=== PATIENT | female | born 1985 | race American Indian/Alaskan Native ===

== ENCOUNTER 2022-04-28 00:14 | Inpatient (IN) | payer MEDICAID ==
[2022-04-28] MEDS ORDERED: LACTATED RINGERS 500 ML IV ONE (00:59)
[2022-04-28 03:36] LABS: Basophils % (Auto) 0.4 % (0.0-1.8); Eosinophils # (Auto) 0.1 K/mm3 (0.0-0.4); Eosinophils % (Auto) 0.6 % (0.0-4.3); Hematocrit 31.5 % (30.3-42.9); Hemoglobin 10.2 gm/dl (10.1-14.3); Lymphocytes # (Auto) 2.5 K/mm3 (1.2-5.4); Lymphocytes % (Auto) 29.7 % (13.4-35.0); Mean Corpuscular HGB Conc 32 % (30-34); Mean Corpuscular Volume 76 fl (79-97); Monocytes # (Auto) 0.7 K/mm3 (0.0-0.8); Platelet Count 289 K/mm3 (140-440); Red Blood Count 4.13 M/mm3 (3.65-5.03); Red Cell Distribution Width 17.8 % (13.2-15.2)
--- NOTE | 2022-04-28 05:55 | Ultrasound Report ---
US OB follow up INDICATION / CLINICAL INFORMATION: labor COMPARISON: None available. TECHNIQUE: Using a transcutaneous probe, multiple grayscale, color Doppler, and spectral Doppler imag es of the uterus and fetus were captured and stored. FINDINGS: Single cephalic fetus heart rate 137 bpm. Amniotic fluid index within normal limits measuring 12.9 cm. Biparietal Diameter = 8.8 cm = 35, 4 weeks, days Head Circumference = 32.3 cm = 36, 3 weeks, days Abdominal Circumference = 30.8 cm = 34, 5 weeks, days Femur Length = 6.7 cm = 34, 4 weeks, days Average Ultrasound Age (AUA) = 35, 2 weeks, days. EDC 05/31/2022. Findings less than gestational age based on LMP of 09/03/2021 is 33 weeks 6 days. Estimated weight = 2555 g. IMPRESSION: 1. Single living fetus as detailed. Signer Name: Murray Echeverria II, MD Signed: 04/28/2022 5:51 AM Workstation Name: [id number]
[2022-04-28] MEDS ORDERED: miSOPROStol 200 MCG TAB PR PRN (06:26)
[2022-04-28] MEDS ORDERED: BUTORPHANOL 2 MG/1 ML INJ IV PRN ×2 (06:26→06:49)
[2022-04-28] MEDS ORDERED: ePHEDrine SULFATE 50 MG/1 ML INJ IV PRN (06:26)
[2022-04-28] MEDS ORDERED: ACETAMINOPHEN 325 MG TAB PO PRN (06:26)
[2022-04-28] MEDS ORDERED: CARBOPROST TROMETHAMINE 250 MCG/1 ML INJ IM PRN (06:26)
[2022-04-28] MEDS ORDERED: TERBUTALINE 1 MG/1 ML INJ SUB-Q PRN (06:26)
[2022-04-28] MEDS ORDERED: LOPERAMIDE 2 MG CAP PO PRN (06:26)
[2022-04-28] MEDS ORDERED: OXYTOCIN 10 UNIT/1 ML INJ IM PRN (06:26)
[2022-04-28] MEDS ORDERED: MINERAL OIL 30 ML ORAL LIQD PO PRN (06:26)
[2022-04-28] MEDS ORDERED: METHYLERGONOVINE MALEATE 0.2 MG/ML VIAL IM PRN (06:26)
[2022-04-28] MEDS ORDERED: AZITHROMYCIN 250 MG TAB PO ONE (06:49)
--- NOTE | 2022-04-28 06:53 | History and Physical Report ---
History of Present Illness Date of examination: 04/28/22 Date of admission: 04/28/2022 Chief complaint: Leaking of fluid History of present illness: 36 y/o at 33-6/7 weeks presents to OBT reporting LOF that was a gush. No VB. No CTX. Good FM. In OBT, ROM Plus was (+). However, LICHA was 12.9 cm on sonogram. She is admitted to L&D for management of PPROM. Past History Past Medical History: no pertinent history Past Surgical History: no surgical history Family/Genetic History: none Social history: no significant social history - Obstetrical History Expected Date of Delivery: 05/10/22 Actual Gestation: 38 Week(s) 2 Day(s) : 3 Para: 1 Hx # Term Pregnancies: 1 Spontaneous Abortions: 1 Number of Living Children: 1 Medications and Allergies Allergies Allergy/AdvReac Type Severity Reaction Status Date / Time No Known Allergies Allergy Unverified 09/15/18 23:39 Active Meds: Active Medications Acetaminophen (Acetaminophen 325 Mg Tab) 650 mg PO Q4H PRN PRN Reason: Pain, Mild (1-3) Betamethasone Acet/Betameth SodPhos (Betamet Acet/Betamet Na Ph 6 Mg/Ml Inj 5 Ml Mdv) 12 mg IM Q24HR ROSARIO Stop: 04/29/22 10:01 Butorphanol Tartrate (Butorphanol 2 Mg/1 Ml Inj) 2 mg IV Q2H PRN PRN Reason: Pain, Moderate(4-6) LABOR PAIN Carboprost Tromethamine (Carboprost Tromethamine 250 Mcg/1 Ml Inj) 250 mcg IM ONCE PRN PRN Reason: Uterine Bleeding Ephedrine Sulfate (Ephedrine Sulfate 50 Mg/1 Ml Inj) 10 mg IV Q2M PRN PRN Reason: Hypotension Lactated Ringer's (Lactated Ringers) 1,000 mls @ 125 mls/hr IV DIRECT ROSARIO Ampicillin Sodium (Ampicillin/Ns 2 Gm/100 Ml) 2 gm in 100 mls @ 200 mls/hr IV Q6HR ROSARIO Stop: 04/30/22 06:59 Methylergonovine Maleate (Methylergonovine Maleate 0.2 Mg/Ml Vial) 0.2 mg IM ONCE PRN PRN Reason: Uterine Bleeding Terbutaline Sulfate (Terbutaline 1 Mg/1 Ml Inj) 0.25 mg SUB-Q ONCE PRN PRN Reason: Hyperstimulation/Hypertonicity Review of Systems All systems: negative - Vital Signs Vital signs: Vital Signs Pulse BP Pulse Ox 67 130/86 99 04/28/22 01:06 04/28/22 01:06 04/28/22 01:06 Temp Pulse Resp BP Pulse Ox 69 130/86 98 04/28/22 06:46 04/28/22 01:06 04/28/22 06:46 - Physical Exam Breasts: Positive: normal Cardiovascular: Regular rate Lungs: Positive: Normal air movement Abdomen: Positive: normal appearance Genitourinary (Female): Positive: normal external genitalia, normal perenium Vulva: both: normal Vagina: Positive: normal moisture Uterus: Positive: enlarged Adnexa: both: normal Anus/Rectum: Positive: normal perianal skin Extremities: Positive: normal Deep Tendon Reflex Grade: Normal +2 - Obstetrical FHR: category 1 Uterine Contraction Monitor Mode: External Cervical Dilatation: 0 Cervical Effacement Percentage: 50 station: -3 Uterine Contraction Pattern: Irregular Results Result Diagrams: 04/28/22 03:06 Abnormal lab results 04/28/22 04/28/22 Range/Units 01:05 03:06 MCV 76 L (79-97) fl MCH 25 L (28-32) pg RDW 17.8 H (13.2-15.2) % [place] % (Auto) 8.0 H (0.0-7.3) % Membranes Rupture Positive A (Negative) All other labs normal. Ultrasound: report reviewed (OB US Limite= SLIUP. Vertex. Fundal placenta. EFW= 2555 (74th %-ile). LICHA= 12.9 cm.), image reviewed Assessment and Plan - Patient Problems (1) 33 weeks gestation of Current Visit: Yes Status: Acute Plan to address problem: care is UTD at [facility] [employer]. BMTZ x2 ordered. GBS culture ordered. Ampicillin rx'ed already. AM shift to obtain records from office. (2) premature rupture of membranes (PPROM) with onset of labor within 24 hours of rupture in third trimester, antepartum Current Visit: Yes Status: Acute Plan to address problem: ROM Plus is (+). However, LICHA is 12.9 cm at this time. The clinical suspicion for PPROM is high. Etiology is unknown. No current signs or symptoms of intra-amniotic infection and inflammation. WBC is WNL. UCx and GC/Chl ordered. Consider MFM consultation to confirm (or refute) this suspicion. Admit to L&D. Rx ampicillin 2 g IVPB x 2 days and azithromycin 1 g PO x1 to prolong latency. As 34 gestation is tomorrow, I recommend IOL w/ PO Cytotec tomorrow night. (3) AMA (advanced maternal age) multigravida 35+ Current Visit: Yes Status: Acute Plan to address problem: Need to review records for NIPT result.
[2022-04-28] MEDS ORDERED: AMPICILLIN 2 GM in SODIUM CHLORIDE 0.9% 50 ML IV SCH (07:00)
[2022-04-28] MEDS ORDERED: AZITHROMYCIN 1 GM ORAL PWDR PACKET PO ONE (07:30)
--- NOTE | 2022-04-28 10:01 | Progress Note ---
Assessment and Plan A: IUP @ 33 6/7 Weeks Category I Tracing Premature Rupture of Membranes AMA GBS Unknown P: Continue IV ABX as ordered Complete BMTZ Series Consult [facility] Subjective - Subjective Date of service: 04/28/22 Patient reports: loss of fluid, movement normal Objective - Vital Signs Vital Signs: Vital Signs - 12hr 04/28/22 04/28/22 04/28/22 01:06 01:11 01:16 Temperature Pulse Rate 63 82 89 Respiratory Rate Blood Pressure 130/86 Blood Pressure [Right] O2 Sat by Pulse 99 99 99 Oximetry 04/28/22 04/28/22 04/28/22 01:21 01:26 01:31 Temperature Pulse Rate 64 83 67 Respiratory Rate Blood Pressure Blood Pressure [Right] O2 Sat by Pulse 99 98 99 Oximetry 04/28/22 04/28/22 04/28/22 01:36 01:41 01:46 Temperature Pulse Rate 65 69 62 Respiratory Rate Blood Pressure Blood Pressure [Right] O2 Sat by Pulse 98 98 98 Oximetry 04/28/22 04/28/22 04/28/22 01:51 01:56 02:01 Temperature Pulse Rate 70 79 72 Respiratory Rate Blood Pressure Blood Pressure [Right] O2 Sat by Pulse 97 99 99 Oximetry 04/28/22 04/28/22 04/28/22 02:06 02:11 02:16 Temperature Pulse Rate 81 78 73 Respiratory Rate Blood Pressure Blood Pressure [Right] O2 Sat by Pulse 98 96 99 Oximetry 04/28/22 04/28/22 04/28/22 02:21 02:26 02:31 Temperature Pulse Rate 72 82 67 Respiratory Rate Blood Pressure Blood Pressure [Right] O2 Sat by Pulse 97 98 99 Oximetry 04/28/22 04/28/22 04/28/22 02:36 02:41 02:46 Temperature Pulse Rate 64 79 97 H Respiratory Rate Blood Pressure Blood Pressure [Right] O2 Sat by Pulse 98 99 97 Oximetry 04/28/22 04/28/22 04/28/22 02:51 02:56 03:01 Temperature Pulse Rate 69 70 73 Respiratory Rate Blood Pressure Blood Pressure [Right] O2 Sat by Pulse 98 99 100 Oximetry 04/28/22 04/28/22 04/28/22 03:06 03:11 03:16 Temperature Pulse Rate 84 85 83 Respiratory Rate Blood Pressure Blood Pressure [Right] O2 Sat by Pulse 100 99 100 Oximetry 04/28/22 04/28/22 04/28/22 03:21 03:26 03:31 Temperature Pulse Rate 68 73 73 Respiratory Rate Blood Pressure Blood Pressure [Right] O2 Sat by Pulse 100 100 100 Oximetry 04/28/22 04/28/22 04/28/22 03:36 03:41 03:46 Temperature Pulse Rate 68 81 71 Respiratory Rate Blood Pressure Blood Pressure [Right] O2 Sat by Pulse 100 100 100 Oximetry 04/28/22 04/28/22 04/28/22 03:51 03:56 04:01 Temperature Pulse Rate 69 83 67 Respiratory Rate Blood Pressure Blood Pressure [Right] O2 Sat by Pulse 100 100 100 Oximetry 04/28/22 04/28/22 04/28/22 04:06 04:11 04:16 Temperature Pulse Rate 69 68 61 Respiratory Rate Blood Pressure Blood Pressure [Right] O2 Sat by Pulse 100 100 100 Oximetry 04/28/22 04/28/22 04/28/22 04:21 04:26 04:31 Temperature Pulse Rate 67 76 69 Respiratory Rate Blood Pressure Blood Pressure [Right] O2 Sat by Pulse 100 100 99 Oximetry 04/28/22 04/28/22 04/28/22 04:36 04:41 04:46 Temperature Pulse Rate 71 73 101 H Respiratory Rate Blood Pressure Blood Pressure [Right] O2 Sat by Pulse 99 99 99 Oximetry 04/28/22 04/28/22 04/28/22 04:51 04:56 05:01 Temperature Pulse Rate 104 H 81 93 H Respiratory Rate Blood Pressure Blood Pressure [Right] O2 Sat by Pulse 99 100 99 Oximetry 04/28/22 04/28/22 04/28/22 05:06 05:11 05:16 Temperature Pulse Rate 88 65 87 Respiratory Rate Blood Pressure Blood Pressure [Right] O2 Sat by Pulse 99 100 100 Oximetry 04/28/22 04/28/22 04/28/22 05:21 05:26 05:31 Temperature Pulse Rate 94 H 82 90 Respiratory Rate Blood Pressure Blood Pressure [Right] O2 Sat by Pulse 99 99 99 Oximetry 04/28/22 04/28/22 04/28/22 05:36 05:41 05:46 Temperature Pulse Rate 90 77 69 Respiratory Rate Blood Pressure Blood Pressure [Right] O2 Sat by Pulse 98 98 97 Oximetry 07/04/28/22 04/28/22 05:51 05:56 06:01 Temperature Pulse Rate 75 75 73 Respiratory Rate Blood Pressure Blood Pressure [Right] O2 Sat by Pulse 98 97 97 Oximetry 04/28/22 04/28/22 04/28/22 06:02 06:06 06:11 Temperature Pulse Rate 68 74 89 Respiratory Rate Blood Pressure Blood Pressure [Right] O2 Sat by Pulse 94 96 98 Oximetry 04/28/22 04/28/22 04/28/22 06:16 06:21 06:26 Temperature Pulse Rate 69 75 70 Respiratory Rate Blood Pressure Blood Pressure [Right] O2 Sat by Pulse 98 97 97 Oximetry 04/28/22 04/28/22 04/28/22 06:31 06:36 06:41 Temperature Pulse Rate 80 74 71 Respiratory Rate Blood Pressure Blood Pressure [Right] O2 Sat by Pulse 98 98 97 Oximetry 04/28/22 04/28/22 04/28/22 06:46 06:51 06:53 Temperature Pulse Rate 69 75 91 H Respiratory Rate Blood Pressure 117/81 Blood Pressure [Right] O2 Sat by Pulse 98 98 Oximetry 04/28/22 04/28/22 04/28/22 06:56 07:01 07:15 Temperature Pulse Rate 92 H 79 63 Respiratory Rate Blood Pressure Blood Pressure [Right] O2 Sat by Pulse 99 100 0 L Oximetry 04/28/22 04/28/22 04/28/22 07:16 07:20 07:25 Temperature Pulse Rate 75 77 75 Respiratory Rate Blood Pressure 113/79 Blood Pressure [Right] O2 Sat by Pulse 100 99 Oximetry 04/28/22 04/28/22 04/28/22 07:30 07:35 07:40 Temperature Pulse Rate 77 69 70 Respiratory Rate Blood Pressure Blood Pressure [Right] O2 Sat by Pulse 100 100 100 Oximetry 04/28/22 04/28/22 04/28/22 07:45 07:50 07:55 Temperature Pulse Rate 87 83 69 Respiratory Rate Blood Pressure Blood Pressure [Right] O2 Sat by Pulse 100 99 100 Oximetry 04/28/22 04/28/22 04/28/22 08:00 08:05 08:10 Temperature Pulse Rate 70 73 89 Respiratory Rate Blood Pressure Blood Pressure [Right] O2 Sat by Pulse 99 99 98 Oximetry 04/28/22 04/28/22 04/28/22 08:15 08:20 08:25 Temperature Pulse Rate 70 72 89 Respiratory Rate Blood Pressure Blood Pressure [Right] O2 Sat by Pulse 99 98 98 Oximetry 04/28/22 04/28/22 04/28/22 08:30 08:35 08:40 Temperature Pulse Rate 71 75 67 Respiratory Rate Blood Pressure Blood Pressure [Right] O2 Sat by Pulse 99 100 99 Oximetry 04/28/22 04/28/22 04/28/22 08:45 08:50 08:51 Temperature 97.5 F L Pulse Rate 69 68 70 Respiratory 16 Rate Blood Pressure Blood Pressure 113/79 [Right] O2 Sat by Pulse 99 99 100 Oximetry 04/28/22 04/28/22 04/28/22 08:55 09:00 09:05 Temperature Pulse Rate 71 69 84 Respiratory Rate Blood Pressure Blood Pressure [Right] O2 Sat by Pulse 100 99 100 Oximetry 04/28/22 04/28/22 04/28/22 09:10 09:15 09:20 Temperature Pulse Rate 77 82 69 Respiratory Rate Blood Pressure Blood Pressure [Right] O2 Sat by Pulse 100 99 99 Oximetry 04/28/22 04/28/22 04/28/22 09:25 09:30 09:35 Temperature Pulse Rate 68 82 82 Respiratory Rate Blood Pressure Blood Pressure [Right] O2 Sat by Pulse 99 98 99 Oximetry 04/28/22 04/28/22 04/28/22 09:40 09:45 09:50 Temperature Pulse Rate 71 69 73 Respiratory Rate Blood Pressure Blood Pressure [Right] O2 Sat by Pulse 100 100 99 Oximetry 04/28/22 04/28/22 09:52 09:55 Temperature Pulse Rate 112 H 74 Respiratory Rate Blood Pressure Blood Pressure [Right] O2 Sat by Pulse 92 99 Oximetry - Exam Breasts: normal Cardiovascular: Regular rate Lungs: Clear to auscultation, Normal air movement Abdomen: Present: normal appearance, soft Uterus: Present: normal, firm, fundal height above umbilicus FHR: category 1 Uterine Contraction Monitor Mode: External Cervical Dilatation: 1 (+Pooling (clear fluid) upon Sterile Speculum Exam) Cervical Effacement Percentage: 20 station: -4 Uterine Contraction Pattern: Absent Uterine Tone Measurement Phase: Resting Extremities: normal - Labs Labs: Abnormal Labs 04/28/22 04/28/22 04/28/22 01:05 03:06 09:02 MCV 76 L MCH 25 L RDW 17.8 H Ross % (Auto) 8.0 H POC Glucose 109 H Membranes Rupture Positive A Laboratory Results - last 24 hr 04/28/22 04/28/22 04/28/22 01:05 03:06 05:27 WBC 8.3 RBC 4.13 Hgb 10.2 Hct 31.5 MCV 76 L MCH 25 L MCHC 32 RDW 17.8 H Plt Count 289 Lymph % (Auto) 29.7 Ross % (Auto) 8.0 H Eos % (Auto) 0.6 Baso % (Auto) 0.4 Lymph # (Auto) 2.5 Ross # (Auto) 0.7 Eos # (Auto) 0.1 Baso # (Auto) 0.0 Seg Neutrophils % 61.3 Seg Neutrophils # 5.1 POC Glucose Membranes Rupture Positive A Blood Type A POSITIVE Antibody Screen Negative 04/28/22 09:02 WBC RBC Hgb Hct MCV MCH MCHC RDW Plt Count Lymph % (Auto) Ross % (Auto) Eos % (Auto) Baso % (Auto) Lymph # (Auto) Ross # (Auto) Eos # (Auto) Baso # (Auto) Seg Neutrophils % Seg Neutrophils # POC Glucose 109 H Membranes Rupture Blood Type Antibody Screen
[2022-04-28] MEDS: BETAMET ACET/BETAMET NA PH 6 MG/ML INJ 5 ML MDV IM SCH (12:09)
[2022-04-28] MEDS: AMPICILLIN/NS 2 GM/100 ML 2 GM/100 ML BAG IV SCH ×2 (12:10→18:04)
[2022-04-28] MEDS: LACTATED RINGERS 1,000 ML IV SCH (12:11)
[2022-04-29] MEDS: AMPICILLIN/NS 2 GM/100 ML 2 GM/100 ML BAG IV SCH ×2 (00:22)
[2022-04-29] MEDS: LACTATED RINGERS 1,000 ML IV SCH (00:37)
[2022-04-29] MEDS: AMPICILLIN/NS 1 GM/50 ML 1 GM/50 ML BAG IV SCH ×4 (05:58→21:30)
[2022-04-29] MEDS ORDERED: INSULIN LISPRO 100 UNIT/ML SUB-Q ONE (05:59)
[2022-04-29] MEDS: miSOPROStol 25 MCG TAB PO SCH ×2 (05:59→12:25)
[2022-04-29] MEDS: INSULIN REGULAR, HUMAN 100 UNITS/1 ML SUB-Q SCH ×2 (08:15→19:26)
[2022-04-29] MEDS: INSULIN NPH, HUMAN 100 UNIT/1 ML SUB-Q SCH (08:22)
[2022-04-29] MEDS: BETAMET ACET/BETAMET NA PH 6 MG/ML INJ 5 ML MDV IM SCH (12:28)
[2022-04-29] MEDS ORDERED: OXYTOCIN DRIP 30 UNITS/500 ML BAG IV SCH (14:00)
--- NOTE | 2022-04-29 19:13 | Event Note ---
Date: 04/29/22 pt evaluated earlier after she had shower this am. Nurse told to start IV pitocin to augment labor. GBS negative and FHR reassuring. Hopeful for vag delivery. Accucheck to be done every 2hrs until and coverage with SSI as needed.
[2022-04-29] MEDS ORDERED: SODIUM CHLORIDE 0.9% 1000 ML 1,000 ML ONE ×2 (19:17→20:16)
--- NOTE | 2022-04-29 19:34 | Progress Note ---
Assessment and Plan A: HD #3 PPROM at 34wks GDMa2 insulin IOL currently with pitocin @6mu Cat 2 tracing, lates noted P: Initiate resus interventions by RN (position changes, O2 and fluid bolus) RN made aware of Cat 2 tracing BS q4hr now, then Q1hr in active labor continuous YUNG and EFM monitoring Subjective - Subjective Date of service: 04/29/22 (0655) Principal diagnosis: PPROM @34wks Patient reports: loss of fluid, movement normal, contractions (states feels some of her contractions) Objective - Vital Signs Vital Signs: Vital Signs - 12hr 04/29/22 04/29/22 04/29/22 07:31 07:36 07:41 Pulse Rate 79 73 79 Blood Pressure O2 Sat by Pulse 99 99 99 Oximetry 04/29/22 04/29/22 04/29/22 07:46 07:51 07:56 Pulse Rate 88 81 85 Blood Pressure O2 Sat by Pulse 98 99 99 Oximetry 04/29/22 04/29/22 04/29/22 08:01 08:04 08:06 Pulse Rate 82 86 88 Blood Pressure 126/73 O2 Sat by Pulse 99 100 Oximetry 04/29/22 04/29/22 04/29/22 08:11 08:16 08:21 Pulse Rate 71 73 100 H Blood Pressure O2 Sat by Pulse 97 98 98 Oximetry 04/29/22 04/29/22 04/29/22 08:26 08:31 08:36 Pulse Rate 84 90 73 Blood Pressure O2 Sat by Pulse 98 98 98 Oximetry 04/29/22 04/29/22 04/29/22 08:41 08:46 08:51 Pulse Rate 84 77 74 Blood Pressure O2 Sat by Pulse 97 96 97 Oximetry 04/29/22 04/29/22 04/29/22 08:56 09:01 09:06 Pulse Rate 74 78 79 Blood Pressure O2 Sat by Pulse 97 98 97 Oximetry 04/29/22 04/29/22 04/29/22 09:11 09:16 09:21 Pulse Rate 89 91 H 87 Blood Pressure O2 Sat by Pulse 97 98 97 Oximetry 04/29/22 04/29/22 04/29/22 09:26 09:31 09:36 Pulse Rate 80 86 86 Blood Pressure O2 Sat by Pulse 97 98 96 Oximetry 04/29/22 04/29/2222 09:41 09:46 09:51 Pulse Rate 90 84 82 Blood Pressure O2 Sat by Pulse 96 97 98 Oximetry 04/29/22 04/29/22 04/29/22 09:56 10:01 10:06 Pulse Rate 95 H 83 99 H Blood Pressure O2 Sat by Pulse 97 98 95 Oximetry 04/29/22 04/29/22 04/29/22 10:11 10:16 10:21 Pulse Rate 82 99 H 92 H Blood Pressure O2 Sat by Pulse 98 97 96 Oximetry 04/29/22 04/29/22 04/29/22 10:26 10:31 10:36 Pulse Rate 93 H 79 84 Blood Pressure O2 Sat by Pulse 97 98 97 Oximetry 04/29/22 04/29/22 04/29/22 10:41 10:46 10:51 Pulse Rate 75 91 H 72 Blood Pressure O2 Sat by Pulse 98 97 100 Oximetry 04/29/22 04/29/22 04/29/22 10:56 11:01 11:06 Pulse Rate 72 73 77 Blood Pressure O2 Sat by Pulse 100 100 100 Oximetry 04/29/22 04/29/22 04/29/22 11:11 11:16 11:21 Pulse Rate 75 73 91 H Blood Pressure O2 Sat by Pulse 100 100 99 Oximetry 04/29/22 04/29/22 04/29/22 11:26 11:31 11:36 Pulse Rate 71 66 68 Blood Pressure O2 Sat by Pulse 99 100 99 Oximetry 04/29/22 04/29/22 04/29/22 11:41 11:46 11:51 Pulse Rate 72 76 78 Blood Pressure O2 Sat by Pulse 98 99 99 Oximetry 04/29/22 04/29/22 04/29/22 11:56 12:01 12:06 Pulse Rate 79 94 H 73 Blood Pressure O2 Sat by Pulse 100 100 100 Oximetry 04/29/22 04/29/22 04/29/22 12:09 17:51 17:53 Pulse Rate 96 H 72 65 Blood Pressure 108/76 O2 Sat by Pulse 75 L 99 Oximetry 04/29/22 04/29/22 04/29/22 17:56 18:01 18:03 Pulse Rate 72 68 68 Blood Pressure 117/65 O2 Sat by Pulse 99 99 Oximetry 04/29/22 04/29/22 04/29/22 18:06 18:11 18:16 Pulse Rate 69 73 68 Blood Pressure O2 Sat by Pulse 98 99 98 Oximetry 04/29/22 04/29/22 04/29/22 18:21 18:26 18:31 Pulse Rate 69 74 67 Blood Pressure O2 Sat by Pulse 98 98 98 Oximetry 04/29/22 04/29/22 04/29/22 18:36 18:41 18:46 Pulse Rate 70 66 85 Blood Pressure O2 Sat by Pulse 98 97 99 Oximetry 04/29/22 04/29/22 04/29/22 18:51 18:56 19:01 Pulse Rate 70 82 70 Blood Pressure O2 Sat by Pulse 97 98 97 Oximetry 04/29/22 04/29/22 04/29/22 19:06 19:11 19:16 Pulse Rate 69 61 64 Blood Pressure O2 Sat by Pulse 97 100 100 Oximetry 04/29/22 04/29/22 19:21 19:26 Pulse Rate 54 L 73 Blood Pressure O2 Sat by Pulse 100 100 Oximetry - Exam Breasts: deferred Vulva: both: normal FHR: category 2 FHR comments: 135-140 Uterine Contraction Monitor Mode: External Cervical Dilatation: 3 Cervical Effacement Percentage: 60 station: -4 Uterine Contraction Frequency (min): 2-3 Uterine Contraction Pattern: Regular - Labs Labs: Abnormal Labs 04/28/22 04/28/22 04/28/22 01:05 03:00 03:06 MCV 76 L MCH 25 L RDW 17.8 H [place] % (Auto) 8.0 H POC Glucose Hemoglobin A1c 7.5 H Membranes Rupture Positive A 04/28/22 04/29/22 04/29/22 09:02 04:08 07:23 MCV MCH RDW [place] % (Auto) POC Glucose 109 H 137 H 124 H Hemoglobin A1c Membranes Rupture Laboratory Results - last 24 hr 04/28/22 04/29/22 04/29/22 03:00 04:08 07:23 POC Glucose 137 H 124 H Hemoglobin A1c 7.5 H
[2022-04-29] MEDS: DOCUSATE SODIUM 100 MG CAP PO SCH (22:00)
[2022-04-30] MEDS ORDERED: SODIUM CHLORIDE 0.9% 1000 ML 1,000 ML ONE ×3 (00:57→06:09)
[2022-04-30] MEDS: AMPICILLIN/NS 1 GM/50 ML 1 GM/50 ML BAG IV SCH ×5 (01:28→15:15)
--- NOTE | 2022-04-30 04:20 | Event Note ---
Date: 04/30/22 (0417) Patient resting at this time, denies feeling contractions since ivp meds given. VE: /-4, soft, almost mid position, clear fluid noted, pitocin 3mu, BS 119. Continue augmentation of labor, tracing cat 2 with minimal variability since IV meds given, contractions irregular.
--- NOTE | 2022-04-30 08:14 | Event Note ---
Date: 04/30/22 Pt declines section for delivery because she came to the hospital for a vaginal . Pt was using oxygen via face mask when I saw her. Denies vag bleed. Pt also declined to void at the time I saw her. Pt desires the same person to do her vag exam. Denies fever or chills. Pt states that she used insulin only in the hospital to control her elevated blood sugar. Pt admits to movment. FHR category I and no ctx seen with pitocin currently off. Pelvic exam done and I could not feel the presenting part nor the cervix. Bed side u/s by me with fetus vertex with a full bladder. Pt told and then she stated OK I was waiting to void after breakfast. Pt encouraged not to hold her urine and pitocin can only be given with reassuring FHR. Pt desires intermittent pitocin and notified of same. Pt also states she is aware that the pitocin had to be stopped twice overnight by the other provider. Lengthy discussion on snf exposure with PPROM for infection and possible abruption. Will continue antibiotics with prolong rupture for GBS unknown. Vitals wnl at this time. NICU personnel present in the room as I counseled pt. Will continue accucheck intermittently with pt not in active labor and pt told last pelvic of 4am will suffice at 3cm/70/high by the last provider. Shared decision making to continue with augmentation of labor with pitocin and no section at this time.
[2022-04-30] MEDS: LACTATED RINGERS 1,000 ML IV SCH (08:20)
[2022-04-30] MEDS ORDERED: FAMOTIDINE 20 MG/2 ML INJ IV ONE (19:20)
[2022-04-30] MEDS ORDERED: METOCLOPRAMIDE 10 MG/2 ML INJ IV ONE (19:20)
[2022-04-30] MEDS ORDERED: BICITRA ORAL LIQD 30ML PO ONE (19:20)
[2022-04-30] MEDS ORDERED: LACTATED RINGERS 1,000 ML IV SCH (19:30)
[2022-04-30] MEDS ORDERED: ceFAZolin/Water 2 GM/20 ML 2 GM/20 ML SYRINGE IV NR (20:00)
[2022-04-30] MEDS ORDERED: OXYTOCIN DRIP 30 UNITS/500 ML BAG IV SCH (20:00)
--- NOTE | 2022-04-30 20:08 | Event Note ---
Date: 04/30/22 Nurse notified me earlier at 12:30pm with category II FHR inspite of oxygen being administered and pt now wants a section. Pt however ate a meal at noon and case delayed for 6hrs. Pt had good response to scalp stimulation when ordered earlier. Consents obtained and will proceed for primary section due to intolerance of labor with PPROM x4days. all questions encouraged and answered.
[2022-04-30] MEDS ORDERED: SODIUM CHLORIDE 0.9% IRR 1,500 ML BOTTLE IR ONE (20:32)
[2022-04-30] MEDS ORDERED: ceFAZolin/STERILE WATER 2 GM/20 ML SYRINGE IV ONE (20:32)
[2022-04-30] MEDS ORDERED: WATER FOR IRRIG STERILE 1,500 ML BOTTLE IR ONE (21:19)
[2022-04-30] MEDS ORDERED: PHENYLEPHRINE/NS 1,000 MCG/10 ML SYRINGE (OR USE) IV ONE (21:51)
[2022-04-30] MEDS ORDERED: BUPIVACAINE/PF (0.5%) 5 MG/1 ML 30 ML VIAL INFILTRATI ONE (21:51)
[2022-04-30] MEDS ORDERED: ePHEDrine SULFATE 50 MG/1 ML INJ ONE (21:51)
[2022-04-30] MEDS ORDERED: ONDANSETRON 4 MG/2 ML INJ ONE (21:51)
[2022-04-30] MEDS ORDERED: KETOROLAC 30 MG/1 ML INJ ONE (21:52)
[2022-04-30] MEDS ORDERED: miSOPROStol 200 MCG TAB ONE (22:18)
[2022-04-30] MEDS ORDERED: MORPHINE 4 MG/1 ML INJ IV PRN (22:43)
[2022-04-30] MEDS ORDERED: PROMETHAZINE 25 MG RECT SUPP PR PRN (22:43)
[2022-04-30] MEDS ORDERED: ONDANSETRON 4 MG/2 ML INJ IV PRN (22:43)
[2022-04-30] MEDS ORDERED: HYDROmorphone 1 MG/1 ML INJ IV PRN ×2 (22:43)
[2022-04-30] MEDS ORDERED: NALOXONE 0.4 MG/1 ML INJ IV PRN (22:43)
[2022-04-30] MEDS ORDERED: PROMETHAZINE 25 MG TAB PO PRN (22:43)
--- NOTE | 2022-04-30 22:55 | Procedure Note ---
OB Delivery Note - Delivery Date of Delivery: 04/30/22 Surgeon: YARI BEEBE Estimated blood loss: other (per QBL) - Section Preop diagnosis: nonreassuring FHR tracing (when pitocin used, therefore intolerance of labor), other (PPROM x4days, Gestational Diabetes at 34.3wks) Postop diagnosis: same (and Large anterior uterine fibroid 8x6cm) section procedure: primary low transverse Disposition: floor Complications: none Narrative: Date: 04/30/22 Surgeon: Yari Beebe MD Preop Dx: IUP at 34.3wks, PPROM x4days, intolerance of labor, late decels when pitocin started; Gestational Diabetes on Insulin therapy Postop Dx: same and large anterior uterine fibroid Procedure : Primary low transverse section Anesthesia: Spinal Intake: 1000cc crystalloids Output: 900cc clear urine EBL: [] After the risks, benefits and alternatives of procedure discussed, patient signed consents and was taken to the operating room. Pt was given spinal anesthesia. After same was adequate, patient was prepped and draped in the usual sterile fashion. Adame catheter in place and draining clear urine. Pt was given prophylactic antibiotic per protocol and time out was done Pfannenstiel skin incision was made and taken sharply to the fascia and the incision extended using electrocautery. Superior edge of the fascia was grasped with dano clamps and the rectus muscle using blunt dissection and also using electrocautery. Lower portion of the fascia also with electrocautery. Rectus muscle in the midline and Peritoneal cavity entered bluntly and extended with good visualization of the bladder. The bladder flap was created sharply using metzenbaum scissors. Lower uterine segment located by lifting anterior fibroid then entered transversely and amniotic sac entered using allys clamps. Uterine incision extended using bandage scissors and care taken avoid huge vessels/sinus to right side of uterus. Infant delivered vertex, bulb suctioned, cord clamped and baby handed to waiting pediatricians. Placenta then delivered completely and uterine cavity cleared of all clots and debri. The uterus was not exteriorized due to large 8x6cm anterior fibroid and uterus closed in 2 layers using 0- monocryl suture in a running locked fashion and then an additional layer of imbrication suture. Surgicel powder placed. Excellent hemostasis noted. The gutters were cleared of clots and debri and anterior peritoneum closed using 3-0 vicryl suture in a running fashion and rectus muscle reapproximated using 0-vicryl suture in a continuous fashion. Rectus fascia closed with 0-monocryl suture that was available in OR in a continuous fashion and subcutaneous tissue copiously irrigated with normal saline and re-approximated using 3-0 vicryl suture. Excellent hemostasis remains. The skin was closed with 4-0 monocryl suture and steristrips placed with pressure dressing. Sponge, lap, instrument and needle counts x2 were normal. Patient tolerated the procedure well and pt was taken to recovery room stable. Findings: Viable female , APGARS 9/9 and weight 2170g. Distorted uterus with large anterior 8x6cm fibroid and extensive engorged vessels/sinus to right side of the uterus, normal tubes and ovaries bilaterally.
[2022-04-30] MEDS ORDERED: fentaNYL-BUPIV 2 MCG/ML-0.125% 200 MCG/100 ML BAG EPIDURAL SCH (23:00)
--- NOTE | 2022-04-30 23:00 | Anesthesia Day of Surgery ---
Anesthesia Day of Surgery - Day of Surgery Patient Examined: Yes Patient H&P Reviewed: Yes Patient is NPO: Yes Beta Blockers: No Cardiac Clearance: No Pulmonary Clearance: No Marcel's Test: N/A
--- NOTE | 2022-04-30 23:00 | Anesthesia Consultation ---
Anesthesia Consult and Med Hx Date of service: 04/30/22 - Airway Anesthetic Teeth Evaluation: Good ROM Head & Neck: Adequate Mental/Hyoid Distance: Adequate Mallampati Class: Class II Intubation Access Assessment: Probably Good - Pulmonary Exam CTA: Yes - Cardiac Exam Cardiac Exam: RRR - Pre-Operative Health Status ASA Pre-Surgery Classification: ASA2 Proposed Anesthetic Plan: Spinal Nerve Block: [place] Tap - Pulmonary Hx Smoking: No Hx Asthma: No Hx Respiratory Symptoms: No SOB: No COPD: No Home Oxygen Therapy: No Hx Pneumonia: No Hx Sleep Apnea: No - Cardiovascular System Hx Hypertension: No Hx Coronary Artery Disease: No Hx Heart Attack/AMI: No Hx Angina: No Hx Percutaneous Transluminal Coronary Angioplasty (PTCA): No Hx Cardia Arrhythmia: No Hx Pacemaker: No Hx Internal Defibrillator: No Hx Valvular Heart Disease: No Hx Heart Murmur: No Hx Peripheral Vascular Disease: No - Central Nervous System Hx Neuromuscular Disorder: No Hx Seizures: No CVA: No Hx Back Pain: No Hx Psychiatric Problems: No - Gastrointestinal Hx Ulcer: No Hx Gastroesophageal Reflux Disease: No - Endocrine Hx Renal Disease: No Hx End Stage Renal Disease: No Hx Cirrhosis: No Hx Liver Disease: No Hx Insulin Dependent Diabetes: No Hx Non-Insulin Dependent Diabetes: No Hx Thyroid Disease: No Hx Hypothyroidism: No Hx Hyperthyroidism: No - Hematic Hx Anemia: No Hx Sickle Cell Disease: No - Other Systems Hx Alcohol Use: No Hx Substance Use: No Hx Cancer: No Hx Obesity: Yes
--- NOTE | 2022-04-30 23:01 | Progress Note ---
Spinal Anesthesia Block - Spinal Anesthesia Block Start Time: 20:31 Stop Time: 21:37 Performed by:: AZAEL BENJAMIN Procedure: The patient was placed in a sitting position on the OR table and monitors applied. A timeout was performed immediately prior to the start of the procedure. The patient was Prepped and draped in a sterile fashion and the skin was localized with 3 mL 1% lidocaine at L[4]-L[5] interspace. An introducer was placed into the back between L4-L5 and a 25g spinal needle was advanced into the intrathecal space until clear, free flowing CSF was observed. 1.8cc of 0.75% hyperbaric bupivacaine + 0.5mcg Precedex was injected into the intrathecal space and the spinal needle was removed. The patient tolerated the procedure well and there were no immediate complications noted.
--- NOTE | 2022-04-30 23:01 | Progress Note ---
Regional Anesthesia Block - Regional Anesthesia Block Start Time: 21:30 Stop Time: 21:37 Performed By:: AZAEL BENJAMIN Procedure: During the pre-op interview the patient agreed to and signed a consent for a TAP block for post surgical pain management. After her C/S was completed a time out was performed prior to the start of the procedure. The Trans Abdominal Plane was identified bilaterally via ultrasound. The skin was prepped bilaterally with chlorhexidine and a 22g stimuplex needle was advanced to the area between the internal oblique muscle and the trans abdominal plane. Marcaine 0.25% 30mlwas injected under ultrasound guidance on the left and right side. Negative aspiration every 5mL, There was no change in the patients heart rate or rhythm and the patient tolerated the procedure well. No apparent complications were observed.
[2022-05-01] MEDS ORDERED: MAGNESIUM HYDROXIDE (MOM) ORAL LIQD UDC PO PRN (00:07)
[2022-05-01] MEDS ORDERED: WITCH HAZEL/ GLYCERIN PAD TP PRN (00:07)
[2022-05-01] MEDS ORDERED: IBUPROFEN 800 MG TAB PO PRN (00:07)
[2022-05-01] MEDS ORDERED: HYDROCORTISONE 25 MG RECTAL SUPP PR PRN (00:07)
[2022-05-01] MEDS ORDERED: OXYTOCIN DRIP 30 UNITS/500 ML BAG IV SCH (00:07)
[2022-05-01] MEDS ORDERED: SIMETHICONE 80 MG CHEW TAB PO PRN (00:07)
[2022-05-01] MEDS ORDERED: LANOLIN/ZINC/DIMETHICONE (LANSINOH) 7 GM TP PRN (00:07)
[2022-05-01] MEDS ORDERED: oxyCODONE /ACETAMINOPHEN 5-325MG TAB PO PRN (00:07)
[2022-05-01] MEDS ORDERED: NALOXONE 0.4 MG/1 ML INJ IV PRN (00:07)
[2022-05-01] MEDS ORDERED: SENNOSIDES 8.6 MG TAB PO PRN (00:07)
[2022-05-01] MEDS ORDERED: miSOPROStol 200 MCG TAB PR ONE (05:29)
--- NOTE | 2022-05-01 06:53 | Progress Note ---
Assessment and Plan POD#1 C/S doing well 1. Routine post op care with removal of green later today, advance diet as tolerated and pt to ambulate in hallway 2. Resume insulin regime with meals and if no flatus, then call MD for SSI; will consider consult to med hospitalist if blood sugar not well controlled All questions encouraged and answered Subjective Date of service: 05/01/22 Principal diagnosis: POD#1 C/S, IDDM ?gest vs pre-gest Interval history: pt has minimal discomfort and pain controlled with meds. Green cath still in place draining large amount of clear urine. Pt has breast pump to start to prepare for milk with baby in NICU Objective - Constitutional Vitals: Vital Signs - 12hr 04/30/22 04/30/22 04/30/22 18:51 18:56 19:01 Temperature Pulse Rate 70 64 61 Respiratory Rate Blood Pressure Blood Pressure [Right] O2 Sat by Pulse 98 97 98 Oximetry O2 Sat by Pulse Oximetry [ Bilateral] 04/30/22 04/30/22 04/30/22 19:06 19:11 19:16 Temperature Pulse Rate 78 88 73 Respiratory Rate Blood Pressure Blood Pressure [Right] O2 Sat by Pulse 97 99 98 Oximetry O2 Sat by Pulse Oximetry [ Bilateral] 04/30/22 04/30/22 04/30/22 19:17 19:21 19:26 Temperature Pulse Rate 94 H 85 67 Respiratory Rate Blood Pressure 125/69 Blood Pressure [Right] O2 Sat by Pulse 98 98 Oximetry O2 Sat by Pulse Oximetry [ Bilateral] 04/30/22 04/30/22 04/30/22 19:31 19:36 19:41 Temperature Pulse Rate 78 76 70 Respiratory Rate Blood Pressure Blood Pressure [Right] O2 Sat by Pulse 100 100 100 Oximetry O2 Sat by Pulse Oximetry [ Bilateral] 04/30/22 04/30/22 04/30/22 19:42 19:46 19:47 Temperature Pulse Rate 56 L 75 69 Respiratory Rate Blood Pressure 116/59 124/65 Blood Pressure [Right] O2 Sat by Pulse 99 Oximetry O2 Sat by Pulse Oximetry [ Bilateral] 04/30/22 04/30/22 04/30/22 20:00 22:29 22:34 Temperature 98.5 F 98.5 F Pulse Rate 71 69 Respiratory 14 Rate Blood Pressure 118/64 121/71 Blood Pressure 124/65 [Right] O2 Sat by Pulse 100 100 Oximetry O2 Sat by Pulse 100 Oximetry [ Bilateral] 04/30/22 04/30/22 04/30/22 22:39 22:54 23:09 Temperature Pulse Rate 54 L 77 56 L Respiratory 18 15 Rate Blood Pressure 115/66 127/52 123/63 Blood Pressure [Right] O2 Sat by Pulse 100 100 99 Oximetry O2 Sat by Pulse Oximetry [ Bilateral] 04/30/22 05/01/22 05/01/22 23:24 00:15 04:32 Temperature 98.5 F 98.4 F Pulse Rate 51 L 58 L 53 L Respiratory 23 18 20 Rate Blood Pressure 124/65 119/64 Blood Pressure 119/71 [Right] O2 Sat by Pulse 100 99 100 Oximetry O2 Sat by Pulse 99 Oximetry [ Bilateral] General appearance: Present: no acute distress - Neck Neck: supple, normal ROM - Respiratory Respiratory effort: normal - Breasts Breasts: deferred - Cardiovascular Rhythm: regular Extremities: No edema - Gastrointestinal General gastrointestinal: Present: soft, non-tender, other (Dressing C/D/I ) - Genitourinary Female genitourinary: other (Fundus firm 1cm below umbilicus and non-tender) - Neurologic Neurologic: moves all extremities - Psychiatric Psychiatric: cooperative - Labs CBC & Chem 7: 04/28/22 03:06 Labs: Abnormal lab results 04/30/22 04/30/22 04/30/22 Range/Units 10:03 15:26 19:57 POC Glucose 123 H 133 H 129 H (70-105) mg/dL Medications & Allergies - Medications Allergies/Adverse Reactions: Allergies No Known Allergies Allergy (Verified 05/01/22 05:33) Home Medications: Home Medications Medication Instructions Recorded Confirmed Last Taken Type Ibuprofen [Motrin] 800 mg PO Q8HR PRN 21 Days #40 04/30/22 Unknown Rx tablet oxyCODONE /ACETAMINOPHEN [Percocet 1 tab PO Q4HR PRN 21 Days #30 tab 04/30/22 Unknown Rx 5/325] Active Medications: Generic Name Dose Route Start Last Admin Trade Name Freq PRN Reason Stop Dose Admin Carboprost Tromethamine 250 mcg 04/28/22 06:26 Carboprost Tromethamine 250 Mcg/1 Ml Inj IM ONCE PRN Uterine Bleeding Docusate Sodium 100 mg 04/28/22 10:00 04/29/22 22:00 Docusate Sodium 100 Mg Cap PO Not Given BID [facility] Ferrous Sulfate 325 mg 05/01/22 10:00 Ferrous Sulfate 325 Mg Tab PO QDAY [facility] Hydrocortisone Acetate 25 mg 05/01/22 00:07 Hydrocortisone 25 Mg Rectal Supp DC BID PRN Hemorrhoids Lactated Ringer's 1,000 mls @ 125 mls/hr 04/28/22 06:30 04/30/22 08:20 Lactated Ringers IV 125 mls/hr DIRECT [facility] Administration Oxytocin/Sodium Chloride 30 units in 500 mls @ 40 mls/hr 05/01/22 00:07 Pitocin/Ns 30 Unit/500ml IV TITR [facility] Protocol Ibuprofen 600 mg 05/01/22 00:07 Ibuprofen 600 Mg Tab PO Q6H PRN Pain, Mild (1-3) Ibuprofen 800 mg 05/01/22 00:07 Ibuprofen 800 Mg Tab PO Q6H PRN Pain, Moderate (4-6) Insulin Human NPH 10 unit 04/29/22 22:00 Insulin Nph, Human 100 Unit/1 Ml SUB-Q QHS [facility] Insulin Human NPH 20 unit 04/29/22 07:30 04/29/22 08:22 Insulin Nph, Human 100 Unit/1 Ml SUB-Q 20 unit 0730 [facility] Administration Insulin Human Regular 10 units 04/29/22 17:30 04/29/22 19:26 Insulin Regular, Human 100 Units/1 Ml SUB-Q 10 units 1730 [facility] Administration Insulin Human Regular 10 units 04/29/22 07:30 04/29/22 08:15 Insulin Regular, Human 100 Units/1 Ml SUB-Q 10 units 0730 [facility] Administration Magnesium Hydroxide 30 ml 05/01/22 00:07 Magnesium Hydroxide (Mom) Oral Liqd Udc PO QHS PRN Constip Unrelieved By Senna Methylergonovine Maleate 0.2 mg 04/28/22 06:26 Methylergonovine Maleate 0.2 Mg/Ml Vial IM ONCE PRN Uterine Bleeding Multi-Ingredient Ointment 1 applic 05/01/22 00:07 Lanolin/Zinc/Dimethicone (Lansinoh) 7 Gm TP PRN PRN dryness/cracking Naloxone HCl 0.1 mg 05/01/22 00:07 Naloxone 0.4 Mg/1 Ml Inj IV Q2MIN PRN Res Rate </= 8 or 02 SAT < 92% Ondansetron HCl 4 mg 04/30/22 22:43 Ondansetron 4 Mg/2 Ml Inj IV Q8H PRN Nausea And Vomiting Oxycodone/Acetaminophen 2 tab 05/01/22 00:07 Oxycodone /Acetaminophen 5-325mg Tab PO Q4H PRN Pain, Moderate (4-6) Promethazine HCl 25 mg 04/30/22 22:43 Promethazine 25 Mg Tab PO Q6H PRN Nausea And Vomiting Senna 17.2 mg 05/01/22 00:07 Sennosides 8.6 Mg Tab PO QHS PRN Constipation Simethicone 80 mg 05/01/22 00:07 Simethicone 80 Mg Chew Tab PO Q6H PRN Gas pain Sodium Chloride 10 ml 04/30/22 23:00 Sodium Chloride 0.9% 10 Ml Flush Syringe IV PRN PRN LINE FLUSH Sodium Chloride 10 ml 05/01/22 00:07 Sodium Chloride 0.9% 10 Ml Flush Syringe IV PRN PRN LINE FLUSH Witch Teresa/Glycerin 1 each 05/01/22 00:07 Witch Teresa/ Glycerin Pad TP PRN PRN Hemorrhoids/cleansing/soothing
[2022-05-01] MEDS: INSULIN REGULAR, HUMAN 100 UNITS/1 ML SUB-Q SCH ×2 (08:00→16:46)
[2022-05-01] MEDS: FERROUS SULFATE 325 MG TAB PO SCH (09:10)
[2022-05-01] MEDS: DOCUSATE SODIUM 100 MG CAP PO SCH ×2 (09:10→22:30)
[2022-05-01] MEDS: INSULIN NPH, HUMAN 100 UNIT/1 ML SUB-Q SCH ×3 (09:12→23:05)
[2022-05-01] MEDS: LACTATED RINGERS 1,000 ML IV SCH (13:56)
[2022-05-01 15:46] LABS: Basophils % (Auto) 0.2 % (0.0-1.8); Eosinophils % (Auto) 0.1 % (0.0-4.3); Hematocrit 29.4 % (30.3-42.9); Hemoglobin 9.5 gm/dl (10.1-14.3); Lymphocytes # (Auto) 1.7 K/mm3 (1.2-5.4); Lymphocytes % (Auto) 14.3 % (13.4-35.0); Mean Corpuscular HGB Conc 32 % (30-34); Mean Corpuscular Volume 76 fl (79-97); Monocytes % (Auto) 8.2 % (0.0-7.3); Platelet Count 270 K/mm3 (140-440); Red Blood Count 3.86 M/mm3 (3.65-5.03); Red Cell Distribution Width 17.7 % (13.2-15.2)
[2022-05-01] MEDS: IBUPROFEN 600 MG TAB PO PRN (19:18)
[2022-05-02] MEDS: INSULIN REGULAR, HUMAN 100 UNITS/1 ML SUB-Q SCH ×2 (08:30→18:40)
[2022-05-02] MEDS: INSULIN NPH, HUMAN 100 UNIT/1 ML SUB-Q SCH (08:30)
--- NOTE | 2022-05-02 08:45 | Post Anesthesia Evaluation ---
- Post Anesthesia Evaluation Patient Participated: Yes Airway Patent: Yes Stable Respiratory Function: Yes Nausea/Vomiting: No Temp > 96.8F: Yes Pain Manageable: Yes Adequeate Hydration: Yes Anesthesia Complications: No Block Receding Appropriately: Yes Patient on Ventilator: No
--- NOTE | 2022-05-02 10:22 | Progress Note ---
Assessment and Plan A: POD #2 GDM (insulin controlled) Asymptomatic Anemia P: Follow Routine PostOp Orders Continue Insulin as orders (hold for low values like this AM: (79) Continue FeSO4 as ordered Subjective - Subjective Date of service: 05/02/22 Principal diagnosis: POD#1 C/S, IDDM ?gest vs pre-gest Patient reports: appetite normal, voiding normally, pain well controlled, flatus, bowel movement, ambulating normally [place]: doing well, in NICU, bottle feeding (and Pumping Breast ) Objective - Vital Signs Latest vital signs: Vital Signs Temp Pulse Resp BP BP Pulse Ox Pulse Ox 05/02/22 08:16 97.6 F 60 18 116/68 99 05/02/22 08:00 98 05/02/22 00:41 98 F 85 20 121/84 96 05/01/22 19:30 98 05/01/22 15:17 98.5 F 72 20 121/80 100 05/01/22 14:59 99 05/01/22 12:08 98.4 F 57 L 16 124/66 95 Intake and Output 05/01/22 05/02/22 05/02/22 22:59 06:59 14:59 Intake Total 680 240 Balance 680 240 Intake: Oral 320 240 Intake, Free Water 360 Other: Total, Intake Amount 320 240 # Voids Void 2 1 - Exam Breasts: Present: normal Cardiovascular: Present: Regular rate Lungs: Present: Clear to auscultation, Normal air movement Abdomen: Present: normal appearance, soft, normal bowel sounds Uterus: Present: normal, firm, fundal height below umbilicus Extremities: Present: edema (+1 bilateral of lower ext) Incision: Present: normal, dry, intact - Labs Labs: Abnormal lab results 05/01/22 05/01/22 05/01/22 Range/Units 12:05 15:09 16:29 WBC 11.7 H (4.5-11.0) K/mm3 Hgb 9.5 L (10.1-14.3) gm/dl Hct 29.4 L (30.3-42.9) % MCV 76 L (79-97) fl MCH 25 L (28-32) pg RDW 17.7 H (13.2-15.2) % [place] % (Auto) 8.2 H (0.0-7.3) % [place] # (Auto) 1.0 H (0.0-0.8) K/mm3 Seg Neutrophils % 77.2 H (40.0-70.0) % Seg Neutrophils # 9.1 H (1.8-7.7) K/mm3 POC Glucose 108 H 114 H (70-105) mg/dL 05/01/22 Range/Units 22:38 WBC (4.5-11.0) K/mm3 Hgb (10.1-14.3) gm/dl Hct (30.3-42.9) % MCV (79-97) fl MCH (28-32) pg RDW (13.2-15.2) % [place] % (Auto) (0.0-7.3) % [place] # (Auto) (0.0-0.8) K/mm3 Seg Neutrophils % (40.0-70.0) % Seg Neutrophils # (1.8-7.7) K/mm3 POC Glucose 151 H (70-105) mg/dL
[2022-05-02] MEDS: IBUPROFEN 600 MG TAB PO PRN ×2 (11:43→17:21)
[2022-05-02] MEDS: DOCUSATE SODIUM 100 MG CAP PO SCH ×2 (11:44→11:46)
[2022-05-02] MEDS: FERROUS SULFATE 325 MG TAB PO SCH (11:44)
--- NOTE | 2022-05-03 10:08 | Progress Note ---
Assessment and Plan POD#3 C/S doing well 1. routine postop care and discharge pt home later today and pt to be seen in clinic post op day7 for incision check. Subjective Date of service: 05/03/22 Principal diagnosis: POD#3 C/S, IDDM ?gest vs pre-gest Interval history: pt has no complaints and is breast pumping for baby in NICU. Pt denies pelvic pain and desires stool softener on discharge. Pt has had BM yesterday but fears constipation at home. Vag bleed less than a period. Objective - Constitutional Vitals: Vital Signs - 12hr 05/03/22 05/03/22 05/03/22 00:16 07:12 07:37 Temperature 98.0 F 97.6 F Pulse Rate 58 L 53 L Respiratory 18 16 Rate Blood Pressure 128/82 137/79 O2 Sat by Pulse 98 100 Oximetry O2 Sat by Pulse 98 Oximetry [ Bilateral] General appearance: Present: no acute distress - Neck Neck: normal ROM - Respiratory Respiratory effort: normal - Breasts Breasts: deferred - Cardiovascular Rhythm: regular - Gastrointestinal General gastrointestinal: Present: soft, non-tender, other (Incision C/D/I with steristrips in place) - Genitourinary Female genitourinary: other (Fundus firm 2cm below umbilicus and no tenderness. lochia scant) - Neurologic Neurologic: moves all extremities - Psychiatric Psychiatric: cooperative - Labs CBC & Chem 7: 05/01/22 15:09 Medications & Allergies - Medications Allergies/Adverse Reactions: Allergies No Known Allergies Allergy (Verified 05/01/22 05:33) Home Medications: Home Medications Medication Instructions Recorded Confirmed Last Taken Type Ibuprofen [Motrin] 800 mg PO Q8HR PRN 21 Days #40 04/30/22 Unknown Rx tablet oxyCODONE /ACETAMINOPHEN [Percocet 1 tab PO Q4HR PRN 21 Days #30 tab 04/30/22 Unknown Rx 5/325] Docusate Sodium [Colace] 100 mg PO BID PRN 30 Days #60 05/03/22 Unknown Rx capsule Active Medications: Generic Name Dose Route Start Last Admin Trade Name Freq PRN Reason Stop Dose Admin Carboprost Tromethamine 250 mcg 04/28/22 06:26 Carboprost Tromethamine 250 Mcg/1 Ml Inj IM ONCE PRN Uterine Bleeding Docusate Sodium 100 mg 04/28/22 10:00 05/02/22 11:46 Docusate Sodium 100 Mg Cap PO 100 mg BID [facility] Administration Ferrous Sulfate 325 mg 05/01/22 10:00 05/02/22 11:44 Ferrous Sulfate 325 Mg Tab PO 325 mg QDAY [facility] Administration Hydrocortisone Acetate 25 mg 05/01/22 00:07 Hydrocortisone 25 Mg Rectal Supp NM BID PRN Hemorrhoids Lactated Ringer's 1,000 mls @ 125 mls/hr 04/28/22 06:30 05/01/22 13:56 Lactated Ringers IV 125 mls/hr DIRECT [facility] Administration Oxytocin/Sodium Chloride 30 units in 500 mls @ 40 mls/hr 05/01/22 00:07 Pitocin/Ns 30 Unit/500ml IV TITR [facility] Protocol Ibuprofen 600 mg 05/01/22 00:07 05/02/22 17:21 Ibuprofen 600 Mg Tab PO 600 mg Q6H PRN Administration Pain, Mild (1-3) Ibuprofen 800 mg 05/01/22 00:07 Ibuprofen 800 Mg Tab PO Q6H PRN Pain, Moderate (4-6) Insulin Human NPH 10 unit 04/29/22 22:00 05/01/22 23:00 Insulin Nph, Human 100 Unit/1 Ml SUB-Q 10 unit QHS [facility] Administration Insulin Human NPH 20 unit 04/29/22 07:30 05/02/22 08:30 Insulin Nph, Human 100 Unit/1 Ml SUB-Q Not Given 0730 [facility] Insulin Human Regular 10 units 04/29/22 17:30 05/02/22 18:40 Insulin Regular, Human 100 Units/1 Ml SUB-Q Not Given 1730 [facility] Insulin Human Regular 10 units 04/29/22 07:30 05/02/22 08:30 Insulin Regular, Human 100 Units/1 Ml SUB-Q Not Given 0730 [facility] Magnesium Hydroxide 30 ml 05/01/22 00:07 Magnesium Hydroxide (Mom) Oral Liqd Udc PO QHS PRN Constip Unrelieved By Senna Methylergonovine Maleate 0.2 mg 04/28/22 06:26 Methylergonovine Maleate 0.2 Mg/Ml Vial IM ONCE PRN Uterine Bleeding Multi-Ingredient Ointment 1 applic 05/01/22 00:07 Lanolin/Zinc/Dimethicone (Lansinoh) 7 Gm TP PRN PRN dryness/cracking Naloxone HCl 0.1 mg 05/01/22 00:07 Naloxone 0.4 Mg/1 Ml Inj IV Q2MIN PRN Res Rate </= 8 or 02 SAT < 92% Ondansetron HCl 4 mg 04/30/22 22:43 Ondansetron 4 Mg/2 Ml Inj IV Q8H PRN Nausea And Vomiting Oxycodone/Acetaminophen 2 tab 05/01/22 00:07 Oxycodone /Acetaminophen 5-325mg Tab PO Q4H PRN Pain, Moderate (4-6) Promethazine HCl 25 mg 04/30/22 22:43 Promethazine 25 Mg Tab PO Q6H PRN Nausea And Vomiting Senna 17.2 mg 05/01/22 00:07 05/01/22 17:34 Sennosides 8.6 Mg Tab PO 17.2 mg QHS PRN Administration Constipation Simethicone 80 mg 05/01/22 00:07 Simethicone 80 Mg Chew Tab PO Q6H PRN Gas pain Sodium Chloride 10 ml 04/30/22 23:00 Sodium Chloride 0.9% 10 Ml Flush Syringe IV PRN PRN LINE FLUSH Sodium Chloride 10 ml 05/01/22 00:07 Sodium Chloride 0.9% 10 Ml Flush Syringe IV PRN PRN LINE FLUSH Witch Teresa/Glycerin 1 each 05/01/22 00:07 Witch Teresa/ Glycerin Pad TP PRN PRN Hemorrhoids/cleansing/soothing
--- NOTE | 2022-05-03 10:10 | Discharge Summary ---
Providers - Providers Date of Admission: 05/01/22 00:07 Attending physician: PANCHO BEEBE 04/28/22 09:42 Consult to Physician [CONS] Urgent Comment: Consulting Provider: DEVENDRA STAPLETON Physician Instructions: Reason For Exam: premature rupture of membranes at 33 6/7 04/29/22 04:00 Consult to Dietitian/Nutrition [CONS] Stat Physician Instructions: Reason For Exam: Gestational diabetes Reason for Consult: Diet education Primary care physician: [employer]PERATOR Hospitalization Reason for admission: IUP - , other (diabetes and PPROM) Delivery: (and uterine fibroid diagnosed) Procedure: primary low transverse Incision: normal complications: none Discharge diagnosis: delivery (C/Section, PPROM, Diabetes) [place] baby: female Hospital course: PPROM and diabetes, then delivery via c/section for intolerance of labor. C/S revealed anterior uterine fibroid and pt told same, possibly the cause of failure of descent at 4cm. Pt had uncomplicated c/section and course uneventful. Pt discharged home on post op day #3. Condition at discharge: Good Disposition: 01 HOME / SELF CARE / HOMELESS - Discharge Diagnoses (1) Delivery by section Status: Acute (2) Diabetes in Status: Acute (3) Leiomyoma Status: Acute Plan - Discharge Medications Prescriptions: Docusate Sodium [Colace] 100 mg PO BID PRN 30 Days #60 capsule PRN Reason: Constipation Ibuprofen [Motrin] 800 mg PO Q8HR PRN 21 Days #40 tablet PRN Reason: Pain, Moderate (4-6) oxyCODONE /ACETAMINOPHEN [Percocet 5/325] 1 tab PO Q4HR PRN 21 Days #30 tab PRN Reason: Pain , Severe (7-10) - Provider Discharge Summary Activity: no sex for 6 weeks, no strenuous exercise Diet: routine Instructions: other (please make appt in clinic for wound check in 1wk.) Additional instructions: [] Smoking cessation referral if applicable(refer to patient education folder for contact #) [] Refer to [facility] Booklet Call your doctor immediately for: * Fever > 100.5 * Heavy vaginal bleeding ( >1 pad per hour) * Severe persistent headache * Shortness of breath * Reddened, hot, painful area to leg or breast * Drainage or odor from incision. * Keep incision clean and dry at all times and follow doctor's instructions regarding bathing/showering - Follow up plan Follow up: PRIMARY CARE, [Primary Care Provider] - 7 Days Forms: [facility] Discharge Summary
[2022-05-03 12:36] VITALS: BP 132/70
== END 2022-05-03 12:00 | disposition home or self-care (01) | DRG 765 ==
LOC: TRG 00:14 → APU 00:17 → TRG 06:44 → LD 07:12 → OBSVTOIN 05-01 00:07 → OB 05-01 00:26
PROVIDERS: ADMIT Obstetrics & Gynecology Gynecology; ATTEND Obstetrics & Gynecology
PROC: 10D00Z1 Extraction of Products of Conception, Low, Open Approach (ICD-10-PCS; principal; 2022-04-30)
PROC: 3E0T3BZ Introduction of Anesthetic Agent into Peripheral Nerves and Plexi, Percutaneous Approach (ICD-10-PCS; 2022-04-30)
DX: O76 Abnormality in fetal heart rate and rhythm complicating labor and delivery (principal); O60.14X0 Preterm labor third trimester with preterm delivery third trimester, not applicable or unspecified; O42.013 Preterm premature rupture of membranes, onset of labor within 24 hours of rupture, third trimester; Z20.822 Contact with and (suspected) exposure to COVID-19; Z37.0 Single live birth; Z3A.33 33 weeks gestation of pregnancy; O24.429 Gestational diabetes mellitus in childbirth, unspecified control; O34.13 Maternal care for benign tumor of corpus uteri, third trimester; D25.9 Leiomyoma of uterus, unspecified; O90.81 Anemia of the puerperium
CPT/HCPCS: 36415; 76816; 82962; 83036; 84112; 85025; 86850; 86900; 86901; 87086; 87116; 87591; 88307; G0378; J2354; J3490; Q9967; J0290; J0595; J0690; J0702; J1815; J1885; J2370; J2405; J2590; J7120; U0003